=== PATIENT | male | born 1985 | race Hispanic/Latino ===

== ENCOUNTER 2023-06-07 11:07 | Emergency (ER) | payer BC ==
[~2023-06-07] VITALS: Ht 170.2 cm; Wt 95.3 kg
[2023-06-07 11:12] VITALS: BP 153/116; PULSE 56; RESP 20
[2023-06-07 11:33] LABS: BASOPHILS # (AUTO) 0.03 K/uL (0.00-0.20); BASOPHILS % (AUTO) 0.4 % (0.0-5.0); HEMATOCRIT 49.1 % (42-54); IMMATURE GRANULOCYTE ABSOLUTE 0.03 K/uL (0-1); LYMPHOCYTES # (AUTO) 1.9 K/uL (1.0-4.8); LYMPHOCYTES % (AUTO) 22.3 % (21.0-51.0); MEAN CORPUSCULAR HGB CONC 33.2 g/dL (32.0-36.0); MEAN CORPUSCULAR VOLUME 93.5 fL (79-99); MONOCYTES # (AUTO) 0.6 K/uL (0.1-1.0); MONOCYTES % (AUTO) 7.1 % (3.0-13.0); NEUTROPHILS # (AUTO) 5.8 K/uL (1.8-7.7); NEUTROPHILS % (AUTO) 69.8 % (40.0-77.0); PLATELET COUNT (AUTO) 257 K/uL (130-400); RED BLOOD CELL COUNT(AUTO) 5.25 MIL/uL (4.50-6.20); WHITE BLOOD COUNT (AUTO) 8.3 K/uL (4.8-10.8)
[2023-06-07 11:34] LABS: APPEARANCE,URINE CLEAR (CLEAR); BILIRUBIN,URINE NEGATIVE (NEGATIVE); GLUCOSE, URINE (UA) NEGATIVE (NEGATIVE); KETONES,URINE NEGATIVE (NEGATIVE); LEUKOCYTE ESTERASE ,URINE NEGATIVE Leu/uL (NEGATIVE); NITRATE,URINE NEGATIVE (NEGATIVE); OCCULT BLOOD,URINE NEGATIVE (NEGATIVE); PH,URINE 5.5 (5.0-8.0); PROTEIN,URINE NEGATIVE (NEGATIVE); UROBILINOGEN,URINE 0.2 mg/dL (0.2-1.0)
[2023-06-07 11:37] LABS: ADD UA MICROSCOPIC NO; COLOR,URINE YELLOW (YELLOW)
[2023-06-07 11:49] LABS: POTASSIUM 3.9 mmol/L (3.5-5.1)
[2023-06-07 11:53] LABS: BILIRUBIN,TOTAL 0.2 mg/dL (0.2-1.0); TOTAL PROTEIN, SERUM 7.9 g/dL (6.0-8.3)
[2023-06-07] MEDS ORDERED: ONDANSETRON 4MG INJ IVP ONE (12:30)
[2023-06-07] MEDS ORDERED: 0.9%NACL 1000ML 1,000 ML IV ONE (12:30)
[2023-06-07] MEDS ORDERED: FAMOTIDINE 20MG VIAL IV ONE (12:30)
[2023-06-07] MEDS ORDERED: KETOROLAC 15MG/ML VIAL (15MG/ML) IV ONE (12:30)
== END 2023-06-07 13:49 | disposition home or self-care (01) ==
LOC: EDH 11:07
DX: K82.1 Hydrops of gallbladder (principal); R10.9 Unspecified abdominal pain
CPT/HCPCS: 99284; 74176; 96374; 96375; 96361; 80053; 83690; 85025; 81003; 36415; 93005; J3490; J7030; J2405; J1885